=== PATIENT | male | born 1970 | race Caucasian/White ===

== ENCOUNTER → 2023-01-16 12:33 | Outpatient (BNVA) | payer MEDICAID, SELFPAY | PROVIDERS: Visit Provider Emergency Medicine | DX: M79.641 Pain in right hand (principal); Z98.890 Other specified postprocedural states; M25.561 Pain in right knee; M10.9 Gout, unspecified; M79.674 Pain in right toe(s) | CPT/HCPCS: 73130; 73562; 80048; 84550 ==

== ENCOUNTER → 2023-02-19 08:40 | Outpatient (BNVA) | payer MEDICAID, SELFPAY | PROVIDERS: PCP Family Medicine; Visit Provider Family Medicine | DX: M17.12 Unilateral primary osteoarthritis, left knee (principal); M54.50 Low back pain, unspecified; M25.50 Pain in unspecified joint; Z13.220 Encounter for screening for lipoid disorders; Z13.6 Encounter for screening for cardiovascular disorders | CPT/HCPCS: 72100; 73562; 80061; 84443; 85025; 85651; 86038; 86140 ==

== ENCOUNTER → 2023-03-18 13:34 | Outpatient (BNVA) | payer MEDICAID, SELFPAY | PROVIDERS: PCP Family Medicine; Referring Provider Family Medicine; Visit Provider Orthopaedic Surgery | DX: M48.062 Spinal stenosis, lumbar region with neurogenic claudication (principal); M54.50 Low back pain, unspecified; M54.9 Dorsalgia, unspecified | CPT/HCPCS: 72110 ==

== ENCOUNTER → 2023-03-26 13:30 | Outpatient (BNVA) | payer MEDICAID, SELFPAY | PROVIDERS: PCP Family Medicine; Referring Provider Family Medicine; Visit Provider Specialist | DX: M17.12 Unilateral primary osteoarthritis, left knee (principal) | CPT/HCPCS: 73560; 73565 ==

== ENCOUNTER 2023-03-26 15:33 | Outpatient (CLI) | payer MEDICAID, SELFPAY | END 2023-03-26 15:34 | disposition home or self-care (01) | LOC: SPT 15:34 | PROVIDERS: PCP Family Medicine; Visit Provider Specialist | DX: Z46.89 Encounter for fitting and adjustment of other specified devices (principal); M17.0 Bilateral primary osteoarthritis of knee | CPT/HCPCS: 97760; L1812 ==

== ENCOUNTER 2023-04-03 14:31 | Outpatient (CLI) | payer MEDICAID, SELFPAY ==
--- NOTE | 2023-04-03 14:30 | MR_ITS ---
WS: [id number] MRI LUMBAR SPINE NONCONTRAST HISTORY: low back pain with radiculopathy, fracture COMPARISON: Lumbar spine radiographs 03/18/2023 TECHNIQUE: Sagittal and axial multisequence imaging is submitted. 2 mm retrolisthesis of L4. Mild anterior wedging of L4 by 10%. Chronic endplate changes at L4 and L5. There is no marrow edema in the L4 and L5 vertebral bodies. Mild disc space narrowing at L4-5 and L5 -S1. Conus terminates normally at L1. L1-L2: Normal. L2-L3: Normal. L3-L4: Shallow central disc protrusion with annular fissure. Very mild facet arthropathy. No stenosis . L4-L5: Mild annular disc bulge with a central disc protrusion. Central disc protrusion extends into t he subarticular recesses with encroachment upon the traversing L5 nerve roots. Mild bilateral LEFT fo raminal stenosis. Disc protrusion extends into the foramina with very minimal contact on the undersur face of the exiting LEFT L4 nerve root. Mild RIGHT foraminal narrowing. L5-S1: Central disc protrusion. Mild facet arthritis. No stenosis. MR/MR lumbar spine wo con* [id number] IMPRESSION: 1. Stable 10% L4 compression fracture. 2. Small amount of degenerative marrow edema in the L4 and L5 vertebral bodies . 3. Central disc protrusion at L4-5. Disc protrusion extends into the subarticu lar recesses with mild encroachment on the traversing L5 nerve roots. Additiona l disc protrusion LEFT foramen with mild contact on the exiting LEFT L4 nerve r oot.
== END 2023-04-03 14:32 | disposition home or self-care (01) ==
PROVIDERS: PCP Family Medicine; Visit Provider Orthopaedic Surgery
DX: S32.049D Unspecified fracture of fourth lumbar vertebra, subsequent encounter for fracture with routine healing (principal); X58.XXXD Exposure to other specified factors, subsequent encounter; M51.16 Intervertebral disc disorders with radiculopathy, lumbar region
CPT/HCPCS: 72148

== ENCOUNTER 2023-06-03 14:30 | Outpatient (CLI) | payer MEDICAID, SELFPAY ==
--- NOTE | 2023-06-03 14:59 | XR_ITS ---
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 ORDER DATE: 06/03/2023 3:09 PM TECHNIQUE: 3 views of the left foot were obtained. X-RAY FINDINGS: There are no fractures or dislocations. No focal abnormal soft tissue swelling. Joint spaces are pres erved. IMPRESSION: No fractures or dislocations of the left foot.
[2023-06-03 15:01] LABS: Erythrocyte Sedimentation Rate 12 mm/hr (0-10)
[2023-06-03 15:25] LABS: Alanine Aminotransferase 14 U/L (0-41); Albumin Level 4.5 g/dL (3.5-5.2); Alkaline Phosphatase 64 U/L (40-130); Anion Gap 14.3 (5-19); Aspartate Amino Transferase 16 U/L (0-40); Blood Urea Nitrogen 7 mg/dL (6-20); Calcium 9.1 mg/dL (8.5-10.5); Carbon Dioxide 27 mmol/L (22-29); Chloride 99 mmol/L (98-107); Free T4 Free Thyroxine 0.83 ng/dL (0.82-1.77); Globulin 2.7 g/dL (1.3-4.6); Glucose 89 mg/dL (65-115); Osmolality Calculated 279 mOsm/kg (285-295); Potassium 4.3 mmol/L (3.5-5.1); Sodium 136 mmol/L (136-145); T3 Free 2.2 PG/ML (2.0-4.4); Thyroid Stimulating Hormone 6.74 uIU/mL (0.27-4.20); Total Bilirubin 0.3 mg/dL (0.15-1.2); Total Protein 7.2 g/dL (6.6-8.7); Uric Acid 6.7 mg/dL (3.4-7.0)
[2023-06-04 14:30] LABS: Cyclic Citrullinated Peptide <16 UNITS
== END 2023-06-03 14:31 | disposition home or self-care (01) ==
LOC: RAD 14:35
PROVIDERS: PCP Family Medicine; Visit Provider Internal Medicine Rheumatology
DX: M19.90 Unspecified osteoarthritis, unspecified site (principal); Z79.899 Other long term (current) drug therapy; E03.9 Hypothyroidism, unspecified; I10 Essential (primary) hypertension
CPT/HCPCS: 36415; 73630; 80053; 84439; 84443; 84481; 84550; 85651; 86140; 86200; 86431

== ENCOUNTER → 2023-06-18 11:43 | Outpatient (BNVA) | payer MEDICAID, SELFPAY | PROVIDERS: PCP Family Medicine; Referring Provider Family Medicine; Visit Provider Internal Medicine Rheumatology | DX: Z79.899 Other long term (current) drug therapy (principal); Z11.59 Encounter for screening for other viral diseases; Z11.1 Encounter for screening for respiratory tuberculosis; M45.6 Ankylosing spondylitis lumbar region; L40.50 Arthropathic psoriasis, unspecified; L40.0 Psoriasis vulgaris; M17.12 Unilateral primary osteoarthritis, left knee; M48.062 Spinal stenosis, lumbar region with neurogenic claudication | CPT/HCPCS: 36415; 82306; 84550; 86480; 86704; 86803; 86812; 87340 ==

== ENCOUNTER → 2023-08-27 10:53 | Outpatient (BNVA) | payer MEDICAID, SELFPAY | PROVIDERS: PCP Family Medicine; Visit Provider Family Medicine | DX: I10 Essential (primary) hypertension (principal); E03.9 Hypothyroidism, unspecified; M16.12 Unilateral primary osteoarthritis, left hip | CPT/HCPCS: 73502; 80048; 84443 ==

== ENCOUNTER → 2023-09-11 08:45 | Outpatient (BNVA) | payer MEDICAID, SELFPAY | PROVIDERS: PCP Family Medicine; Visit Provider Orthopaedic Surgery | DX: M48.062 Spinal stenosis, lumbar region with neurogenic claudication (principal) | CPT/HCPCS: 72100 ==

== ENCOUNTER → 2023-10-28 10:24 | Outpatient (BNVA) | payer MEDICAID, SELFPAY | PROVIDERS: PCP Family Medicine; Visit Provider Family Medicine | DX: E03.9 Hypothyroidism, unspecified (principal) | CPT/HCPCS: 80076; 82565; 84439; 84443; 84481; 85025; 86140 ==

== ENCOUNTER → 2024-05-03 15:52 | Outpatient (BNVA) | payer MEDICAID, SELFPAY | PROVIDERS: PCP Family Medicine; Visit Provider Family Medicine | DX: I10 Essential (primary) hypertension (principal); E03.9 Hypothyroidism, unspecified; L40.50 Arthropathic psoriasis, unspecified; M48.062 Spinal stenosis, lumbar region with neurogenic claudication; Z51.81 Encounter for therapeutic drug level monitoring | CPT/HCPCS: 80053; 80061; 80076; 82565; 84439; 84443; 84481; 85025; 86140 ==

== ENCOUNTER → 2024-11-15 14:14 | Outpatient (BNVA) | payer MEDICAID, SELFPAY | PROVIDERS: PCP Family Medicine; Visit Provider Family Medicine | DX: E03.9 Hypothyroidism, unspecified (principal); I10 Essential (primary) hypertension | CPT/HCPCS: 80053; 84439; 84443; 84481 ==

== ENCOUNTER → 2025-02-16 13:19 | Outpatient (BNVA) | payer MEDICAID, SELFPAY | PROVIDERS: PCP Family Medicine; Visit Provider Family Medicine | DX: E03.9 Hypothyroidism, unspecified (principal) | CPT/HCPCS: 84439; 84443; 84481 ==

== ENCOUNTER 2025-04-18 15:21 | Emergency (ER) | payer MEDICAID, SELFPAY ==
[2025-04-18 15:54] VITALS: BP 183/107; PULSE 60; RESP 14; TEMP 36.8; O2SAT 98; BMI 23.6
--- NOTE | 2025-04-18 16:00 | CTR_ITS ---
PROCEDURE INFORMATION: Exam: CT Head Without Contrast Exam date and time: 04/18/2025 4:14 PM Age: 54 years old Clinical indication: Injury or trauma; Blunt trauma (contusions or hematomas); Without loss of consciousness; Injury details: Trauma; Fall through ceiling, no loc. Knot left parietal region TECHNIQUE: Imaging protocol: Computed tomography of the head without contrast. Radiation optimization: All CT scans at this facility use at least one of these dose optimization techniques: automated exposure control; mA and/or kV adjustment per patient size (includes targeted exams where dose is matched to clinical indication); or iterative reconstruction. COMPARISON: CT cervical spin wo con* [id number] 04/18/2025 4:14 PM RADIATION DOSE METRICS: Total DLP (mGy-cm): 180.2 FINDINGS: Brain: No evidence of intra-axial or extra-axial hemorrhage. No mass effect or midline shift. Lam-white differentiation is maintained. Basilar cisterns are patent. Cerebral ventricles: No hydrocephalus. Paranasal sinuses: The visualized paranasal sinuses are well aerated. Mastoid air cells: The visualized mastoids and middle ears are clear. Bones: Calvarium is intact. No evidence of acute fracture. Soft tissues: Left parietal scalp contusion/laceration. CT/CT head wo con* [id number] IMPRESSION: 1. No acute intracranial abnormality.
--- NOTE | 2025-04-18 16:00 | XRR_ITS ---
PROCEDURE INFORMATION: Exam: XR Left Shoulder Exam date and time: 04/18/2025 4:37 PM Age: 54 years old Clinical indication: Injury or trauma; Fall; Blunt trauma (contusions or hematomas); Shoulder; Left TECHNIQUE: Imaging protocol: Radiologic exam of the left shoulder. Views: 2 or more views. COMPARISON: CT cervical spin wo con* [id number] 04/18/2025 4:14 PM FINDINGS: Bones/joints: Acute AC joint separation with prominent superior displacement of the distal clavicle. Coracoclavicular distance measures approximately 29 mm. No convincing evidence of fracture. The glenohumeral articulation is grossly intact. Soft tissues: Soft tissue edema in the region of the distal clavicle. XR/XR shoulder LT min 2V* [id number] IMPRESSION: 1. Type V AC joint separation.
--- NOTE | 2025-04-18 16:14 | CTR_ITS ---
PROCEDURE INFORMATION: Exam: CT Cervical Spine Without Contrast Exam date and time: 04/18/2025 4:14 PM Age: 54 years old Clinical indication: Injury or trauma; Fall; Blunt trauma TECHNIQUE: Imaging protocol: Computed tomography of the cervical spine without contrast. Radiation optimization: All CT scans at this facility use at least one of these dose optimization techniques: automated exposure control; mA and/or kV adjustment per patient size (includes targeted exams where dose is matched to clinical indication); or iterative reconstruction. COMPARISON: CT head wo con* [id number] 04/18/2025 4:14 PM RADIATION DOSE METRICS: Total DLP (mGy-cm): 180.2 FINDINGS: Bones/joints: Moderate multilevel uncovertebral hypertrophy and facet arthrosis. Chronic spinous process fracture of C2. No evidence of acute fracture or subluxation of the cervical spine. The craniocervical junction including the atlantoaxial and atlantooccipital articulations are intact. C2-C3: No central or foraminal stenosis. C3-C4: No central or foraminal stenosis. C4-C5: Uncovertebral hypertrophy results in mild right-sided foraminal stenosis. No central stenosis. C5-C6: Mild uncovertebral hypertrophy without central or foraminal stenosis. C6-C7: Mild uncovertebral hypertrophy without central or foraminal stenosis. C7-T1: Mild uncovertebral hypertrophy without central or foraminal stenosis. Lungs: The visualized lung apices are clear. Soft tissues: No gross soft tissue abnormality. No significant prevertebral edema. No evidence of fluid collection or hematoma. CT/CT cervical spin wo con* [id number] IMPRESSION: 1. No evidence of fracture or subluxation of the cervical spine.
--- NOTE | 2025-04-18 16:27 | ED_ITS ---
HPI - Fall General: Chief Complaint: Fall Stated Complaint: fell through a ceiling, L shoulder pain, head lac Time Seen by Provider: 04/18/25 16:20 Source: patient Mode of arrival: ambulatory Limitations: no limitations History of Present Illness: 54-year-old male states he fell through the ceiling roughly 2 hours ago. States he landed on his left side landing on his left shoulder and head. Has pain in his left shoulder head with a small laceration and neck pain denies any other injuries denies any chest pain. He had no loss conscious. Associated symptoms-after fall: Reports headache(s); Denies abdominal pain, chest pain or neck pain Related Data Previous Rx's ?Medication ?Instructions ?Recorded HINGED KNEE BRACE #1 ea 03/26/23 miscellaneous medical supply See Rx Instructions misce llaneous 09/16/23 .COMPLEX #1 ea acetaminophen 300 mg-codeine 30 mg 1 tab PO DAILY PRN headache #7 tabs 11/15/24 tablet levothyroxine 75 mcg tablet 75 mcg PO DAILY 90 days #9 0 tabs 11/15/24 losartan 25 mg tablet 37.5 mg (1.5 x 25 mg) PO ALEX LY 90 11/15/24 days #135 tabs hydrocodone 5 mg-acetaminophen 325 1 tab PO Q6H PRN pa in #14 tabs 04/18/25 mg tablet Allergies Allergy/AdvReac Type Severity Reaction Status Date / Time No Known Allergies Allergy Verified 04/18/25 15:56 Review of Systems Const: Denies: fever(s), chills, body aches or change in appetite Eyes: Denies: blurry vision or eye discomfort ENMT: Denies: throat pain or dental pain Card: Denies: chest pain Resp: Denies: dyspnea GI: Denies: abdominal pain, nausea, vomiting or diarrhea Musc: Reports: extremity pain; Denies: neck pain or back pain Skin/Breast: Denies: rash Neuro: Reports: headache(s) PFSH ED 2 PFSH: Medical History Thyroid disease High risk medication use Plaque psoriasis Psoriatic arthritis Alopecia Psoriasis Surgical History History of surgical removal of meniscus of knee Social History Smoking and tobacco/nicotine status: never used tobacco/nicotine Alcohol intake: current Alcohol intake frequency: 0-2 Drinks per Day Substance/Drug Use: unknown Physical Exam Const: COMMON NORMALS: no acute distress, patient oriented x3 and healthy appearing HENMT: COMMON NORMALS: normocephalic HEAD & SCALP: normocephalic OTHER: 1 cm laceration to left parietal scalp Eye: COMMON NORMALS: Equal, round and reactive pupils present, EOMs intact bilaterally and conjunctivae normal CONJUNCTIVA: Yes conjunctivae normal PUPIL: Yes Equal, round and reactive pupils present Neck/C-Spine: COMMON NORMALS: full ROM and supple Chest: COMMONS NORMALS: normal inspection of the chest Resp: COMMON NORMALS: normal respiratory effort, No retractions, No use of accessory muscles and clear to auscultation bilaterally AUSCULTATION: clear to auscultation bilaterally Cardio: COMMON NORMALS: regular rate, regular rhythm and No murmurs present (Cardio) RATE: regular rate RHYTHM: regular rhythm GI: COMMON NORMALS: Normal to inspection, nondistended, normoactive bowel sounds present, Soft to palpation, non-tender and no masses PALPATION: Yes Soft to palpation Extremity: NARRATIVE EXTREMITY EXAM: Tenderness noted over left shoulder Neuro: COMMON NORMALS: patient oriented x3, moves all extremities and no focal motor deficits Psych: COMMON NORMALS: mental status grossly normal, Normal thought process present and cooperative THOUGHT PROCESS: Normal thought process present Skin: COMMON NORMALS: no rashes or lesions noted and no wounds GENERAL SKIN EXAM: no rashes or lesions noted Course Vital Signs: Vital signs: Vital Signs Temperature 98.3 F 04/18/25 15:54 Pulse Rate 68 04/18/25 16:35 Respiratory Rate 16 04/18/25 16:35 Blood Pressure 192/113 04/18/25 16:35 Pulse Oximetry 96 04/18/25 16:35 Oxygen Delivery Me thod Room Air 04/18/25 15:54 MDM - Fall Medical Decision Making Patient presents here AC joint separation left shoulder after fall with a head laceration. Head CT C-spine CT head are negative he refused to have the laceration on his head repaired. It was cleaned he stable for discharge follow- up orthopedics return if worsening Medical Records I reviewed the patient's medical records. Lab Data Radiology Impressions Head CT 04/18/25 16:00 IMPRESSION: 1. No acute intracranial abnormality. Cervical Spine CT 04/18/25 16:14 IMPRESSION: 1. No evidence of fracture or subluxation of the cervical spine. All radiology interpretation(s) finalized by discharge Discharge Plan Discharge Patient Disposition: Home Clinical Impression: Fall, Laceration of head, Acromioclavicular joint separation Condition: Stable Prescriptions: New hydrocodone-acetaminophen 5-325 mg tablet 1 tab PO Q6H PRN (Reason: pain) Qty: 14 0RF No Action levothyroxine 75 mcg tablet 75 mcg PO DAILY 90 Days Qty: 90 2RF losartan 25 mg tablet 37.5 mg PO DAILY 90 Days Qty: 135 3RF Rx Instructions: 1/2 AM, 1 PM acetaminophen-codeine 300-30 mg tablet 1 tab PO DAILY PRN (Reason: headache) Qty: 7 0RF (DME) HINGED KNEE BRACE See Rx Instructions .Route .MEDSUPPLY Qty: 1 0RF Rx Instructions: As directed miscellaneous medical supply Misc See Rx Instructions miscellaneous .COMPLEX Qty: 1 0RF Rx Instructions: 1 cane as directed; Discharge Orders: Discharge ED (Routine); Ordered 04/18/25 Ordered By: Sourav Burnett Referrals: Kash De La Rosa MD [Physician, Orthopedics] - 4-7 days Yessi David MD [Primary Care Provider, Family Practice] Discharge Diet: Advance as tolerated Discharge Activity: Resume usual activity Patient Instructions: Acromioclavicular Separation (ED), Opioid Safety Print Language: Upper Sorbian Coding Level of Care Code ED Route [employer] for Jennifer Coreas
[2025-04-18] MEDS: HYDROcodone-acetaminophen 5-325 mg Tablet 1 TAB PO (16:33)
[2025-04-18 16:35] VITALS: BP 192/113; PULSE 68; RESP 16; O2SAT 96
[2025-04-18 17:03] VITALS: BP 163/107; PULSE 65; RESP 16; O2SAT 99
[2025-04-18 17:06] VITALS: BP 163/107; PULSE 82; RESP 16; O2SAT 97
== END 2025-04-18 17:14 | disposition home or self-care (01) ==
PROVIDERS: Emergency Provider Emergency Medicine; PCP Family Medicine
DX: S01.91XA Laceration without foreign body of unspecified part of head, initial encounter (principal); S43.102A Unspecified dislocation of left acromioclavicular joint, initial encounter; W17.89XA Other fall from one level to another, initial encounter
CPT/HCPCS: 70450; 72125; 73030; 99284; A4565; J9999

== ENCOUNTER → 2025-04-28 14:54 | Outpatient (BNVA) | payer MEDICAID, SELFPAY | PROVIDERS: PCP Family Medicine; Visit Provider Orthopaedic Surgery | DX: S43.102A Unspecified dislocation of left acromioclavicular joint, initial encounter (principal); X58.XXXA Exposure to other specified factors, initial encounter | CPT/HCPCS: 73030 ==

== ENCOUNTER → 2025-05-24 10:43 | Outpatient (BNVA) | payer MEDICAID, SELFPAY | PROVIDERS: PCP Family Medicine; Visit Provider Orthopaedic Surgery | DX: S43.102D Unspecified dislocation of left acromioclavicular joint, subsequent encounter (principal); X58.XXXD Exposure to other specified factors, subsequent encounter | CPT/HCPCS: 73030 ==

== ENCOUNTER → 2025-05-31 11:03 | Outpatient (BNVA) | payer MEDICAID, SELFPAY | PROVIDERS: PCP Family Medicine; Visit Provider Family Medicine | DX: Z13.220 Encounter for screening for lipoid disorders (principal); I10 Essential (primary) hypertension; E03.9 Hypothyroidism, unspecified; Z13.6 Encounter for screening for cardiovascular disorders | CPT/HCPCS: 80048; 80061; 84443 ==